=== PATIENT | male | born 2000 | race Caucasian/White ===

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

== ENCOUNTER 2019-08-03 08:59 | Day surgery (SDC) | payer OTHER ==
[~2019-08-03] VITALS: Ht 175.3 cm; Wt 62.4 kg
[~2019-08-03 08:59] MED LIST changes: +Amox Tr-K Clv1 EAC2 PO
--- NOTE | 2019-08-03 09:51 | NUR ---
Ambulatory in Day Surgery History, Chart, Medications and Allergies reviewed before start of procedure.Patient confirms NPO status and agrees with scheduled surgery. PATIENT WITH NO SHOWER AT HOME (CHLOREHEXIDE). PATIENT APPEARS VERY ANXIOUS BUT COOPERATIVE AND PLEASANT WITH CARE
--- NOTE | 2019-08-03 13:35 | NUR ---
PT REPORT FROM SHEEBA HAYWOOD RN. PT ARRIVED TO ROOM 207 ALERT AND ORIENTED. PT DRESSING WITH GAUZE/TAPE TO GLUTEAL FOLD WITH SMALL AMOUNT OF S/S DRAINAGE. PT HAS PACKING IN PLACE NOTE BY STRING OF TAPE HANGING OUT OF GLUTEAL FOLD. PT ABLE TO TLERATED FOOD AND FLUID WITHOUT DIFFICULTY, PT RECEIVED ONE PAIN MED. PROVIDED PT WITH ETHAN PAD AND MADONNA PANTIES FOR ABCESS DRAINAGE. PT HAD MANY QUESTIONS AND CONCERNS. SPENT TIME MAKING SURE PT UNDERSTOOD HOME CARE AND WHEN TO CALL DR. PROVIDED EMOTIONAL SUPPORT. Discharge instructions reviewed with patient. Patient verbalizes understanding. Copy given to patient to take home. Patient States Post-Procedure ride home has been arranged. Discharged via wheelchair to private car for ride home. Patient up to Ambulate independently. Gait steady. ALL BELONINGS RETURNED TO PT.
== END 2019-08-03 22:59 | disposition home or self-care (01) ==
LOC: ORSCMMR 08:59 → ORD 10:15 → ORSCMMR 22:59
PROVIDERS: Surgery
PROC: 0DJD8ZZ Inspection of Lower Intestinal Tract, Via Natural or Artificial Opening Endoscopic (ICD-10-PCS; principal; 2019-08-03 10:15)
PROC: 0D9QXZZ Drainage of Anus, External Approach (ICD-10-PCS; principal; 2019-08-03 10:15)
DX: K61.1 Rectal abscess (principal); F17.210 Nicotine dependence, cigarettes, uncomplicated
CPT/HCPCS: A9270-GY; J0295; J1100; J2250; J2405; J2704; J3010; J7120

== ENCOUNTER 2021-04-16 18:58 | Emergency (ER) | payer OTHER ==
[~2021-04-16] VITALS: Ht 177.8 cm; Wt 59.0 kg
[2021-04-16 19:51] LABS: BASOPHILS ABSOLUTE AUTO 0.04 K/mm3 (0.00-0.23); BASOPHILS PERCENT AUTO 0 % (0-2); EOSINOPHILS ABSOLUTE AUTO 0.01 K/mm3 (0.00-0.68); EOSINOPHILS PERCENT AUTO 0 % (0-6); Hematocrit 47.1 % (37.0-53.0); Hemoglobin 15.8 g/dL (13.5-17.5); IMMATURE GRAN ABSOLUTE AUTO 0.02 K/mm3 (0.00-0.10); IMMATURE GRAN PERCENT AUTO 0 % (0-1); LYMPHOCYTES ABSOLUTE AUTO 1.89 K/mm3 (0.84-5.20); LYMPHOCYTES PERCENT AUTO 19 % (21-46); MONOCYTES ABSOLUTE AUTO 1.24 K/mm3 (0.16-1.47); MONOCYTES PERCENT AUTO 13 % (4-13); Mean Corpuscular HGB Conc 33.5 g/dL (31.5-36.5); Mean Corpuscular Volume 95 fL (80-100); Mean Platelet Volume 10.8 fL (9.1-12.4); NEUTROPHILS ABSOLUTE AUTO 6.71 K/mm3 (1.96-9.15); NEUTROPHILS PERCENT AUTO 68 % (41-73); Platelet Count 157 K/mm3 (150-400); RDW Coefficient Variation 12.8 % (11.7-14.2); RDW Standard Deviation 45.2 fL (35.1-46.3); Red Blood Cell Count 4.94 M/mm3 (4.30-5.90); White Blood Cell Count 9.91 K/mm3 (4.00-11.30)
[2021-04-16 20:11] LABS: Alanine Aminotransfer (ALT/SGP 44 U/L (12-78); Albumin, Blood 4.7 g/dL (3.4-5.0); Albumin/Globulin Ratio 1.3 (0.8-1.8); Alk Phos 72 U/L (50-136); Anion Gap 10 mmol/L (6-16); Aspartate Aminotrans (AST/SGOT 23 U/L (12-37); Blood Urea Nitrogen 8 mg/dL (8-24); Bun/Creatinine Ratio 13.6 (12.0-20.0); CO2, Blood 26 mmol/L (21-32); Calcium, Blood 9.9 mg/dL (8.5-10.1); Chloride, Blood 103 mmol/L (98-108); Creatinine, Blood 0.59 mg/dL (0.60-1.20); Globulin, Blood 3.6 g/dL (2.2-4.0); Glomerular Filtration Rate >60 (60-); Glucose, Blood 88 mg/dL (70-99); Potassium, Blood 3.6 mmol/L (3.5-5.5); Sodium, Blood 139 mmol/L (136-145); Total Protein, Blood 8.3 g/dL (6.4-8.2)
[2021-04-16] MEDS ORDERED: ONDA4ODT MM (23:08)
== END 2021-04-16 23:22 | disposition home or self-care (01) ==
LOC: ER 18:58
PROVIDERS: Physician Assistant
DX: K29.70 Gastritis, unspecified, without bleeding (principal)
CPT/HCPCS: 36415; 80053; 83690; 85025; 96374; 99283-25; A9270; J2405; J7030

== ENCOUNTER 2021-07-04 15:26 | Emergency (ER) | payer OTHER ==
[~2021-07-04] VITALS: Ht 177.8 cm; Wt 72.6 kg
[~2021-07-04 15:26] MED LIST changes: +ONDA4ODT MM
[2021-07-04 16:29] LABS: BASOPHILS ABSOLUTE AUTO 0.05 K/mm3 (0.00-0.23); BASOPHILS PERCENT AUTO 1 % (0-2); EOSINOPHILS ABSOLUTE AUTO 0.03 K/mm3 (0.00-0.68); EOSINOPHILS PERCENT AUTO 1 % (0-6); Hematocrit 44.3 % (37.0-53.0); Hemoglobin 14.7 g/dL (13.5-17.5); IMMATURE GRAN ABSOLUTE AUTO 0.01 K/mm3 (0.00-0.10); IMMATURE GRAN PERCENT AUTO 0 % (0-1); LYMPHOCYTES ABSOLUTE AUTO 2.95 K/mm3 (0.84-5.20); LYMPHOCYTES PERCENT AUTO 46 % (21-46); MONOCYTES ABSOLUTE AUTO 0.82 K/mm3 (0.16-1.47); MONOCYTES PERCENT AUTO 13 % (4-13); Mean Corpuscular HGB 32.1 pg (26.0-34.0); Mean Corpuscular HGB Conc 33.2 g/dL (31.5-36.5); Mean Corpuscular Volume 97 fL (80-100); Mean Platelet Volume 10.6 fL (9.1-12.4); NEUTROPHILS ABSOLUTE AUTO 2.58 K/mm3 (1.96-9.15); NEUTROPHILS PERCENT AUTO 40 % (41-73); Platelet Count 179 K/mm3 (150-400); RDW Coefficient Variation 12.5 % (11.7-14.2); RDW Standard Deviation 44.8 fL (35.1-46.3); Red Blood Cell Count 4.58 M/mm3 (4.30-5.90); White Blood Cell Count 6.44 K/mm3 (4.00-11.30)
[2021-07-04 16:33] LABS: Alanine Aminotransfer (ALT/SGP 28 U/L (12-78); Albumin, Blood 3.9 g/dL (3.4-5.0); Albumin/Globulin Ratio 1.1 (0.8-1.8); Alk Phos 64 U/L (50-136); Anion Gap 9 mmol/L (6-16); Aspartate Aminotrans (AST/SGOT 27 U/L (12-37); Bilirubin, Total 0.3 mg/dL (0.1-1.0); Blood Urea Nitrogen 9 mg/dL (8-24); Bun/Creatinine Ratio 14.3 (12.0-20.0); CO2, Blood 23 mmol/L (21-32); Calcium, Blood 8.8 mg/dL (8.5-10.1); Chloride, Blood 110 mmol/L (98-108); Creatinine, Blood 0.63 mg/dL (0.60-1.20); Globulin, Blood 3.7 g/dL (2.2-4.0); Glomerular Filtration Rate >60 (60-); Glucose, Blood 91 mg/dL (70-99); Potassium, Blood 4.1 mmol/L (3.5-5.5); Sodium, Blood 142 mmol/L (136-145); Total Protein, Blood 7.6 g/dL (6.4-8.2)
[2021-07-04] MEDS ORDERED: ACETAMINOPHEN500 MG PO (17:15)
== END 2021-07-04 17:20 | disposition home or self-care (01) ==
LOC: ER 15:26
PROVIDERS: Physician Assistant
DX: S20.211A Contusion of right front wall of thorax, initial encounter (principal); S80.12XA Contusion of left lower leg, initial encounter; S80.11XA Contusion of right lower leg, initial encounter; Z72.89 Other problems related to lifestyle; F17.200 Nicotine dependence, unspecified, uncomplicated; Z79.899 Other long term (current) drug therapy; W17.89XA Other fall from one level to another, initial encounter; Y92.9 Unspecified place or not applicable
CPT/HCPCS: 36415; 70450; 71260; 72125; 74177; 80053; 85025; G0480; J7030; Q9967

== ENCOUNTER 2022-11-05 12:07 | Emergency (ER) | payer OTHER ==
[~2022-11-05] VITALS: Ht 175.3 cm; Wt 72.6 kg
[~2022-11-05 12:07] MED LIST changes: +ACETAMINOPHEN500 MG PO
[2022-11-05 12:13] VITALS: BP 140/84
[2022-11-05] MEDS ORDERED: Bactrim Ds Tab1 EACH PO (13:28)
[2022-11-05] MEDS ORDERED: CEPH500 PO (13:28)
== END 2022-11-05 13:49 | disposition home or self-care (01) ==
LOC: ER 12:07
DX: L02.416 Cutaneous abscess of left lower limb (principal); F17.210 Nicotine dependence, cigarettes, uncomplicated; Z88.6 Allergy status to analgesic agent
CPT/HCPCS: 10061; 99282-25

== ENCOUNTER → 2023-07-25 | Outpatient (CLI) | payer OTHER ==
[~2023-07-25] MED LIST changes: +Bactrim Ds Tab1 EACH PO
[2023-07-28 08:03] LABS: HEPATITIS B SURFACE ANTIBODY <3.10 IU/L
[2023-07-28 08:26] LABS: HIV 1,2 COMBO ANTIGEN/ANTIBODY Negative (Negative)
[2023-07-28 10:23] LABS: HEPATITIS B SURFACE ANTIGEN Negative (Negative)
[2023-07-28 13:26] LABS: HCV QNT BY NAAT (IU/ML) Not Detected; HCV QNT BY NAAT (LOG IU/ML) Not Detected; HCV QNT BY NAAT INTERP Not Detected (Not Detected)
== END ==
LOC: LAB SHORT 18:52 → LAB 18:52
PROVIDERS: Emergency Medicine
DX: Z20.9 Contact with and (suspected) exposure to unspecified communicable disease (principal)
CPT/HCPCS: 84460; 87340; 87389; 87522

== ENCOUNTER 2023-12-25 11:46 | Day surgery (SDC) | payer OTHER ==
[~2023-12-25 11:46] MED LIST changes: +Lactated Ringer's 1,000 ML IV ONE
[2023-12-25] MEDS ORDERED: Lidocaine HCl/Pf 1% 5 ML VIAL ONE (11:50)
== END 2023-12-25 12:00 | disposition home or self-care (01) ==
LOC: ORSCSDS 11:46
DX: K92.1 Melena (principal); Z53.9 Procedure and treatment not carried out, unspecified reason
CPT/HCPCS: J2003; J7120

== ENCOUNTER 2024-03-20 03:21 | Emergency (ER) | payer OTHER ==
[~2024-03-20] VITALS: Ht 172.7 cm; Wt 63.5 kg
[~2024-03-20 03:21] MED LIST changes: -Lactated Ringer's 1,000 ML IV ONE
[2024-03-20 03:27] VITALS: BP 147/119
[2024-03-20] MEDS ORDERED: LIDO700A20 TOP (04:44)
[2024-03-20] MEDS ORDERED: ACET500 PO (04:44)
[2024-03-20] MEDS ORDERED: Acetaminophen 500 MG Tab PO ONE (04:45)
== END 2024-03-20 05:55 | disposition home or self-care (01) ==
LOC: ER 03:21
DX: S22.41XA Multiple fractures of ribs, right side, initial encounter for closed fracture (principal); F17.200 Nicotine dependence, unspecified, uncomplicated; V43.52XA Car driver injured in collision with other type car in traffic accident, initial encounter; Z88.6 Allergy status to analgesic agent
CPT/HCPCS: 70450; 71250; 99284-25; A9270

== ENCOUNTER 2024-06-22 17:29 | Emergency (ER) | payer OTHER ==
[~2024-06-22] VITALS: Ht 180.3 cm; Wt 74.8 kg
[~2024-06-22 17:29] MED LIST changes: +ACET500 PO; +LIDO700A20 TOP
[2024-06-22 17:39] VITALS: BP 120/68
== END 2024-06-22 18:41 | disposition home or self-care (01) ==
LOC: ER 17:29
DX: J02.9 Acute pharyngitis, unspecified (principal); Z03.821 Encounter for observation for suspected ingested foreign body ruled out; Z88.6 Allergy status to analgesic agent
CPT/HCPCS: 70360; 71045; 74018; 99283-25

== ENCOUNTER 2024-07-21 16:13 | Emergency (ER) | payer OTHER ==
[~2024-07-21] VITALS: Ht 177.8 cm; Wt 77.1 kg
[2024-07-21 16:36] VITALS: BP 116/67
[2024-07-21] MEDS ORDERED: Tetanus,Diphtheria Toxd Ped/Pf 0.5 ML VIAL IM ONE (16:40)
[2024-07-21] MEDS ORDERED: POLYMYXIN B-TMP10 ML BOTHEYES (16:40)
[2024-07-21] MEDS ORDERED: Diphth,Pertuss(Acell),Tet Vac 0.5 ML VIAL IM ONE (16:45)
== END 2024-07-21 16:56 | disposition home or self-care (01) ==
LOC: ER 16:13
DX: H10.9 Unspecified conjunctivitis (principal); S60.512A Abrasion of left hand, initial encounter; F17.210 Nicotine dependence, cigarettes, uncomplicated; Z88.6 Allergy status to analgesic agent; Z79.899 Other long term (current) drug therapy
CPT/HCPCS: 90471; 90702; 90715; 99282-25

== ENCOUNTER 2024-10-29 15:41 | Emergency (ER) | payer OTHER ==
[~2024-10-29] VITALS: Ht 177.8 cm; Wt 83.7 kg
[~2024-10-29 15:41] MED LIST changes: +POLYMYXIN B-TMP10 ML BOTHEYES
[2024-10-29 15:44] VITALS: BP 129/79
== END 2024-10-29 17:36 | disposition home or self-care (01) ==
LOC: ER 15:41
DX: S90.31XA Contusion of right foot, initial encounter (principal); S60.221A Contusion of right hand, initial encounter; F17.210 Nicotine dependence, cigarettes, uncomplicated; W22.8XXA Striking against or struck by other objects, initial encounter; Z88.6 Allergy status to analgesic agent
CPT/HCPCS: 73130; 73630; 99283-25